=== PATIENT | male | born 1995 | race Hispanic/Latino ===

== ENCOUNTER → 2023-08-05 | Outpatient (CLI) | payer OTHER ==
[2023-08-05 13:52] LABS: INR 0.99; PLATELET COUNT, AUTOMATED 314 10^3/uL (150-450); PROTHROMBIN TIME 12.8 SECONDS (12.5-14.5)
[2023-08-05 13:53] LABS: PARTIAL THROMBOPLASTIN TIME 25.4 SECONDS (24.8-34.2)
[2023-08-05 14:04] LABS: COLLAGEN EPINEPHRINE 78 SECONDS (74-162)
== END ==
LOC: M LAB 13:09
PROVIDERS: ATTEND Physician Assistant
DX: Z01.818 Encounter for other preprocedural examination (principal)